=== PATIENT | female | born 1970 | race African-American/Black ===

== ENCOUNTER 2023-04-03 10:44 | Day surgery (SDC) | payer OTHER ==
[~2023-04-03] VITALS: Ht 175.3 cm; Wt 68.0 kg
[2023-04-03] MEDS ORDERED: fentaNYL citrate 0.05 MG/ML VIAL ONE (12:03)
[2023-04-03] MEDS ORDERED: fentaNYL citrate 0.05 MG/ML VIAL IVP ONE (12:55)
== END 2023-04-03 13:42 | disposition home or self-care (01) ==
LOC: MDS 10:44 → MMU 10:49 → MDS 13:42
PROVIDERS: ATTEND Internal Medicine Gastroenterology
DX: Z12.11 Encounter for screening for malignant neoplasm of colon (principal); Z80.0 Family history of malignant neoplasm of digestive organs
CPT/HCPCS: 45378; J3010